=== PATIENT | female | born 1945 | race Caucasian/White ===

== ENCOUNTER 2021-05-22 10:01 | Emergency (ER) | payer MEDICARE, SELFPAY ==
[2021-05-22 10:11] VITALS: BP 165/93; PULSE 78; RESP 16; TEMP 36.7; O2SAT 99
--- NOTE | 2021-05-22 10:45 | ED.WOUNDLAC ---
HPI - Wound/Laceration General Chief Complaint: Wound/Laceration Stated Complaint: cut left leg Source: patient and RN notes reviewed Limitations: no limitations History of Present Illness HPI narrative: The patient, on minimal medications, presents with skin avulsion/laceration. Patient states she sustained a half dollar size injury to her barney nearly a week ago, from a trimmer meat that scraped her as it was off. The area was approximated, and in the last half week she has developed surrounding redness . No fever, discharge, abscess/induration, streaking and she attributes redness to sensitivity to antibiotic ointment.Discussed and she declines tetanus; and, discussed plan to provide oral antibiotics, topical antibiotic substitute, and not oral steroids which she requests. Related Data Home Medications Medication Instructions Recorded Confirmed Allergy Relief (loratadine) 07/25/19 Otc Eye Vitamin 05/22/21 Allergies Allergy/AdvReac Type Severity Reaction Status Date / Time ciprofloxacin Allergy Unknown Unconscious Verified 07/25/19 09:48 poison komal extract Allergy Unknown RASH Verified 03/14/19 10:57 CIPROFLOXACIN HCL Allergy Unknown Unconscious Uncoded 07/25/19 09:48 Review of Systems Review of Systems: General/Constitutional: No weight loss,fever Eyes: N0: Redness,discharge Ears/Nose/Throat: No: Epistaxis,ear discharge Respiratory: Denies: Hemoptysis Gastrointestinal: No Vomiting, Bleeding-rectal Skin: No Lumps, REPORTS eruption Neurologic: No Focal Weakness,Sz Hematologic: Denies: Petechiae/Purpura Psychiatric: No: Suicida ideationl All Other Systems: Reviewed and Negative [facility] Past Medical History Medical History (Updated 05/22/21 @ 10:47 by Casimiro Baez MD) No significant past medical history Surgical History Surgical History (Updated 07/25/19 @ 11:13 by HITESH Kim) No significant past surgical history Family History Family History Mother Family history of lymphoma Social History Social History Smoking status: Never smoker Smoking end date: 09/01/86 Alcohol intake: current Comments At time of signature, agree with nursing past medical, surgical, social and family history. There is no relevant family history pertinent to the presenting complaint Exam Narrative: General Appearance: Well appearing, Conjunctiva clear Mouth/Throat: Normal appearing, Normal lips, Supple Respiratory: Airway patent, No respiratory distress Musculoskeletal: Full strength Skin: Warm, Dry, fairly approximated skin avulsion with surrounding almost violaceous redness and satellite lesions Neurological: A&O x3, , Normal affect Course Vital Signs Vital signs: Vital Signs Temperature 98.1 F 05/22/21 10:11 Pulse Rate 78 05/22/21 10:11 Respiratory Rate 16 05/22/21 10:11 Blood Pressure 165/93 H 05/22/21 10:11 Pulse Oximetry 99 05/22/21 10:11 Temperature 98.1 F 05/22/21 10:11 Pulse Rate 78 05/22/21 10:11 Respiratory Rate 16 05/22/21 10:11 Blood Pressure 165/93 H 05/22/21 10:11 Pulse Oximetry 99 05/22/21 10:11 Discharge Plan Discharge Clinical Impression: Avulsion of skin Patient Disposition: Home, Self-Care Condition: Stable Instructions: Cellulitis (ED) Additional Instructions: You may use OTC preparations like antihistamines [Claritin, Benadryl] for itch Keep photo log of area Prescriptions: New mupirocin 2 % ointment 1 applic TOPICAL TID Qty: 30 RF: 0 cephalexin 500 mg capsule 1,000 mg PO Q12H 7 Days Qty: 28 RF: 0 No Action Allergy Relief (loratadine) RF: 0 Otc Eye Vitamin RF: 0 Follow-up/Referrals: UNKNOWN,DOCTOR [Primary Care Provider] -
== END 2021-05-22 10:55 | disposition home or self-care (01) ==
PROVIDERS: Emergency Provider Emergency Medicine
DX: S81.802A Unspecified open wound, left lower leg, initial encounter (principal); W27.8XXA Contact with other nonpowered hand tool, initial encounter
CPT/HCPCS: 99213; G0463